=== PATIENT | male | born 1985 | race Caucasian/White ===

== ENCOUNTER 2021-04-14 04:50 | Emergency (ER) | payer OTHER ==
[~2021-04-14] VITALS: Ht 182.9 cm; Wt 102.1 kg
[2021-04-14 05:05] VITALS: BP 117/93
== END 2021-04-14 05:05 | disposition short-term general hospital (02) ==
LOC: M.ERS 04:50
DX: S21.232A Puncture wound without foreign body of left back wall of thorax without penetration into thoracic cavity, initial encounter (principal); S01.432A Puncture wound without foreign body of left cheek and temporomandibular area, initial encounter; W34.09XA Accidental discharge from other specified firearms, initial encounter; Y93.89 Activity, other specified; Y92.89 Other specified places as the place of occurrence of the external cause; Y99.8 Other external cause status